=== PATIENT | male | born 1995 | race African-American/Black ===

== ENCOUNTER 2017-07-20 16:55 | Emergency (ER) | payer OTHER ==
[2017-07-20 17:16] VITALS: BP 133/77
[2017-07-20] MEDS ORDERED: IBUPROFEN 800 MG TABLET PO ONE (17:53)
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
== END 2017-07-20 18:56 | disposition home or self-care (01) ==
LOC: ER 16:55
DX: S29.019A Strain of muscle and tendon of unspecified wall of thorax, initial encounter (principal); S29.012A Strain of muscle and tendon of back wall of thorax, initial encounter; S80.02XA Contusion of left knee, initial encounter; S80.01XA Contusion of right knee, initial encounter; M25.561 Pain in right knee; M25.562 Pain in left knee; M54.5 Low back pain; M79.672 Pain in left foot; M25.572 Pain in left ankle and joints of left foot; M25.473 Effusion, unspecified ankle; V47.5XXA Car driver injured in collision with fixed or stationary object in traffic accident, initial encounter
CPT/HCPCS: 72070; 99283

== ENCOUNTER 2017-09-09 11:26 | Emergency (ER) | payer BC, OTHER ==
[2017-09-09 11:37] VITALS: BP 161/72
[2017-09-09] MEDS ORDERED: ONDANSETRON 4 MG TAB.RAPDIS PO ONE (11:47)
[2017-09-09] MEDS ORDERED: KETOROLAC TROMETHAMINE 60 MG/2 ML SDV IM ONE (11:47)
--- NOTE | 2017-09-09 11:49 | ER Document Report ---
ED Medical Screen (RME) - General Chief Complaint: Back Pain Stated Complaint: BACK PAIN Time Seen by Provider: 09/09/17 11:43 Mode of Arrival: Medic Information source: Patient Notes: Patient presents emergency department for complaints of right-sided flank pain. Patient reports approximately one hour ago when he was laying in bed he started having right-sided pain. He got up had a bowel movement and it came back and the pain continued. Patient complains of nausea and has vomited one time. Patient denies trauma. Denies history of this pain. Reports he used to drink a lot of Mountain Dew but he has quit recently. Family history of kidney stones. I have greeted and performed a rapid initial assessment of this patient. A comprehensive ED assessment and evaluation of the patient, analysis of test results and completion of the medical decision making process will be conducted by additional ED providers. TRAVEL OUTSIDE OF THE [place] IN LAST 30 DAYS: No - Related Data Allergies/Adverse Reactions: No Known Allergies Allergy (Verified 09/09/17 11:28) Past Medical History Renal/ Medical History: Denies: Hx Peritoneal Dialysis Musculoskeltal Medical History: Reports Hx Musculoskeletal Trauma - Labrum tear Past Surgical History: Reports: Hx Orthopedic Surgery - Immunizations Immunizations up to date: Yes Physical Exam - Vital signs Vitals: Temp Pulse Resp BP Pulse Ox 98.5 F 80 20 161/72 H 100 09/09/17 11:36 09/09/17 11:36 09/09/17 11:36 09/09/17 11:36 09/09/17 11:36 Course - Vital Signs Vital signs: Temp Pulse Resp BP Pulse Ox 98.5 F 80 20 161/72 H 100 09/09/17 11:36 09/09/17 11:36 09/09/17 11:36 09/09/17 11:36 09/09/17 11:36 Doctor's Discharge - Discharge Referrals: JONY FLYNN MD [Primary Care Provider] - Follow up as needed
--- NOTE | 2017-09-09 12:09 | RADIOLOGY REPORT (SQ) ---
EXAM DESCRIPTION: CT LTD RENAL STONE PROTOCOL ON COMPLETED DATE/TIME: 09/09/2017 11:57 am REASON FOR STUDY: right flank pain COMPARISON: None. TECHNIQUE: CT scan of the abdomen and pelvis performed without intravenous or oral contrast. Images reviewed with lung, soft tissue, and bone windows. Reconstructed coronal and sagittal MPR images revi ewed. All images stored on PACS. All CT scanners at this facility use dose modulation, iterative reconstruction, and/or weight based d osing when appropriate to reduce radiation dose to as low as reasonably achievable (ALARA). [facility]: Dose Right [facility]: CareDose [facility]: Dose Right [facility]: Teradose 4D [facility]: Smart Technologies RADIATION DOSE: CT Rad equipment meets quality standard of care and radiation dose reduction techniq ues were employed. CTDIvol: 9.1 mGy. DLP: 513 mGy-cm.mGy. LIMITATIONS: None. FINDINGS: LOWER CHEST: No significant findings. No nodules or infiltrates. NON-CONTRASTED LIVER, SPLEEN, ADRENALS: Evaluation limited by lack of IV contrast. No identified sign ificant masses. PANCREAS: No masses. No peripancreatic inflammatory changes. GALLBLADDER: No identified stones by CT criteria. No inflammatory changes to suggest cholecystitis. RIGHT KIDNEY AND URETER: No suspicious masses. Assessment limited by lack of IV contrast. There is a 2 mm calcification at the right UVJ. Mild hydronephrosis/ hydroureter. LEFT KIDNEY AND URETER: No suspicious masses. Assessment limited by lack of IV contrast. No signifi cant calcifications. No hydronephrosis or hydroureter. AORTA AND RETROPERITONEUM: No aneurysm. No retroperitoneal masses or adenopathy. BOWEL AND PERITONEAL CAVITY: No obvious masses or inflammatory changes. No free fluid. APPENDIX: Normal. PELVIS, BLADDER, AND ABDOMINAL WALL:No abnormal masses. No free fluid. Bladder normal. BONES: No significant findings. OTHER: No other significant finding. IMPRESSION: Mild right hydronephrosis secondary to the presence of a 2 mm calculus at the right UVJ. COMMENT: Quality ID # [id number]: Final reports with documentation of one or more dose reduction techniques (e.g., Automated exposure control, adjustment of the mA and/or kV according to patient size, use of iterative reconstruction technique) TECHNICAL DOCUMENTATION: JOB ID: [id number] [employer]- All Rights Reserved Reading location - IP/workstation name: [email or web address]
[2017-09-09] MEDS ORDERED: TAMSULOSIN HCL 0.4 MG CAP.SR.24H PO ONE (12:30)
[2017-09-09] MEDS ORDERED: ONDANSETRON ODT 4 MG TAB (6 TAB/ER DISP) PO PRN (12:30)
== END 2017-09-09 12:43 | disposition home or self-care (01) ==
LOC: ER 11:26
DX: N20.0 Calculus of kidney (principal); R10.9 Unspecified abdominal pain; R11.10 Vomiting, unspecified
CPT/HCPCS: 99284; 96372; 76380; J1885; S0119

== ENCOUNTER 2018-09-04 19:55 | Emergency (ER) | payer BC, OTHER ==
[2018-09-04 20:04] VITALS: BP 144/84
[2018-09-04] MEDS ORDERED: DEXAMETHASONE SOD PHOS INJ 10 MG/1 ML VIAL IM ONE (20:42)
[2018-09-04] MEDS ORDERED: KETOROLAC TROMETHAMINE 60 MG/2 ML SDV IM ONE (20:42)
--- NOTE | 2018-09-04 20:49 | ER Document Report ---
ED Neck/Back Problem - General Chief Complaint: Back Pain Stated Complaint: BACK PAIN Primary Care Provider: JONY FLYNN MD [Primary Care Provider] - Follow up as needed Mode of Arrival: Ambulatory Information source: Patient Notes: 23-year-old male presented to ED for complaint of bilateral lower back pain. He states that he drove to [place] and back between Tuesday and now. He states that he thought at first that he was having a kidney stone but that sharp pain in the flank disappeared and now he just has muscle pain bilaterally. He states it hurts to bend and turn in certain directions but he can walk around with no difficulty. He states he has had no loss control of bowel bladder, no saddle anesthesia, no loss of control or sensation to the lower extremities. He is a ble to walk with a even steady gait. He states most the time he can walk fine. TRAVEL OUTSIDE OF THE [place] IN LAST 30 DAYS: No - HPI Patient complains to provider of: Pain, Lower back Onset: Other - Tuesday Onset: Gradual Timing: Still present - Intermittent Severity: Severe Pain Level: 5 Context: Bending, Lifting, Turning Associated symptoms: Like prior neck/back pain, Lower back pain. denies: Radiation to arm, Radiation to chest, Radiation to leg, Sensory loss, Sweaty Exacerbated by: Movement of trunk, Sitting position Relieved by: Nothing Similar symptoms previously: Yes Recently seen / treated by doctor: No - Related Data Allergies/Adverse Reactions: No Known Allergies Allergy (Verified 09/09/17 11:28) Past Medical History - General Information source: Patient - Social History Smoking Status: Never Smoker Frequency of alcohol use: None Drug Abuse: None Lives with: Family Family History: Reviewed & Not Pertinent - Past Medical History Cardiac Medical History: Reports: None Pulmonary Medical History: Reports: None EENT Medical History: Reports: None Neurological Medical History: Reports: None Endocrine Medical History: Reports: None Renal/ Medical History: Reports: Hx Kidney Stones Malignancy Medical History: Reports None GI Medical History: Reports: None Musculoskeletal Medical History: Reports Hx Musculoskeletal Trauma - Labrum tear Skin Medical History: Reports None Psychiatric Medical History: Reports: None Traumatic Medical History: Reports: None Infectious Medical History: Reports: None Past Surgical History: Reports: Hx Orthopedic Surgery - Immunizations Immunizations up to date: Yes Review of Systems - Review of Systems Constitutional: No symptoms reported EENT: No symptoms reported Cardiovascular: No symptoms reported Respiratory: No symptoms reported Gastrointestinal: No symptoms reported Genitourinary: No symptoms reported Male Genitourinary: No symptoms reported Musculoskeletal: Back pain, Muscle pain, Muscle stiffness Skin: No symptoms reported Hematologic/Lymphatic: No symptoms reported Neurological/Psychological: No symptoms reported -: Yes All other systems reviewed and negative Physical Exam - Vital signs Vitals: Temp Pulse Resp BP Pulse Ox 98.3 F 81 14 144/84 H 97 09/04/18 20:03 09/04/18 20:03 09/04/18 20:03 09/04/18 20:03 09/04/18 20:03 Interpretation: Normal - General General appearance: Appears well, Alert - HEENT Head: Normocephalic, Atraumatic Eyes: Normal Pupils: PERRL - Respiratory Respiratory status: No respiratory distress Chest status: Nontender Breath sounds: Normal Chest palpation: Normal - Cardiovascular Rhythm: Regular Heart sounds: Normal auscultation Murmur: No - Abdominal Inspection: Normal Distension: No distension Bowel sounds: Normal Tenderness: Nontender Organomegaly: No organomegaly - Back Back: Normal, Tender. No: Deformity/step-off, CVA tenderness, Vertebra tenderness, Scars, Scoliosis, Wounds Notes: Patient denies any signs or symptoms of cauda equina, no loss control of bowel bladder, no saddle anesthesia, no loss of control or sensation to the lower extremities. After performing a Medical Screening Examination, I estimate there is LOW risk for EXPANDING OR RUPTURED ABDOMINAL AORTIC ANEURYSM, CAUDA EQUINA SYNDROME, EPIDURAL MASS LESION, or HERNIATED DISK CAUSING SEVERE SPINAL STENOSIS, thus I consider the discharge disposition reasonable. I have reevaluated this patient multiple times and no significant life threatening changes are noted. The patient and I have discussed the diagnosis and risks, and we agree with discharging home and close follow-up. We also discussed returning to the Emergency Department immediately if new or worsening symptoms occur with the understanding that symptoms and presentations can change. We have discussed the symptoms which are most concerning (e.g., saddle anesthesia, urinary or bowel incontinence or retention, changing or worsening pain) that necessitate immediate return. - Extremities General upper extremity: Normal inspection, Nontender, Normal color, Normal ROM, Normal temperature General lower extremity: Normal inspection, Nontender, Normal color, Normal ROM, Normal temperature, Normal weight bearing. No: Basim's sign - Neurological Neuro grossly intact: Yes Cognition: Normal Orientation: AAOx4 [place] Coma Scale Eye Opening: Spontaneous Maged Coma Scale Verbal: Oriented Maged Coma Scale Motor: Obeys Commands [place] Coma Scale Total: 15 Speech: Normal Motor strength normal: LUE, RUE, LLE, RLE Sensory: Normal - Psychological Associated symptoms: Normal affect, Normal mood - Skin Skin Temperature: Warm Skin Moisture: Dry Skin Color: Normal Course - Vital Signs Vital signs: Temp Pulse Resp BP Pulse Ox 98.3 F 81 14 144/84 H 97 09/04/18 20:03 09/04/18 20:03 09/04/18 20:03 09/04/18 20:03 09/04/18 20:03 Discharge - Discharge Clinical Impression: Low back pain Qualifiers: Chronicity: acute Back pain laterality: bilateral Sciatica presence: without sciatica Qualified Code(s): M54.5 - Low back pain Condition: Stable Disposition: HOME, SELF-CARE Additional Instructions: LOW BACK PAIN: Three out of every four people will have an episode of disabling back pain during their lifetime. Most commonly the pain is due to straining of the muscles and ligaments in the low back. Usual treatment includes: (1) Rest on a firm surface. Avoid lying on your stomach. (2) Ice pack the painful area. After a few days, gentle heat may be used intermittently to relax the area, or ice packs can be continued. (3) Medication may be needed -- muscle relaxers and antiinflammatory medicines are commonly used. (4) As the back improves, exercises are prescribed to strengthen the back and abdominal muscles. Your doctor will advise you on the proper care for your back at each stage in your recovery. You may be better in a few days -- or healing may take several weeks. If new symptoms of a "herniated disc" (radiation of pain, numbness, or tingling down the back of the leg or weakness in the leg) occur, you should be re-examined. Further testing may be necessary. Toradol Injection You have been given an injection of ketorolac tromethamine (Toradol). This is an excellent, safe drug for pain control. It also has potent antiinflammatory action. You should have significant pain relief within about one hour. Toradol is not addicting and is non-sedating. It does not interfere with driving or work. Call or return if you develop itching, hives, shortness of breath, or rash. STEROID MEDICATION: You have been given an injection of medicine of the cortisone/steroid class. This medication is used to control inflammation or allergy. It is often continued as a pill for a short period of time, until the acute process subsides. There are usually no side effects from short-term use of cortisone-like medications. Some persons feel an increased sense of well-being and are not sleepy at bedtime. Long-term use of cortisone medications is best avoided, un less required for a severe condition. If your condition does not remit, or relapses after the course of corticosteroid medication, you should consult your physician. Stretching Exercises for the Back The physician has recommended that you begin stretching exercises for your back. These are often used even while the back is painful. However, you should notify the physician if the activities seem to increase your pain. PELVIC TILT: Lie flat on your back with knees bent. Tighten your stomach and buttock muscles so it flattens your lower back against the floor. Hold 10 seconds. Repeat 10 times, twice daily. KNEE RAISE: Lying on the back with knees bent, raise one knee to your chest, then the other. Hold both knees against the chest 10 seconds, then lower one knee at a time. Repeat 10 times, twice daily. PARTIAL TRUNK RAISE: Lie face down, arms at your sides. Keeping your waist on the floor, use your arms raise your chest up. Support yourself on your elbows for 30 seconds. Repeat twice daily, increasing the time to two minutes as you recover. MUSCLE RELAXERS: Muscle relaxing medications are usually prescribed for acute muscle spasm or injury to the neck and back. They are often combined with antiinflammatory pain medication for increased relief. You may stop the muscle relaxer when the pain and stiffness have improved. Start the medication again if spasms recur. Muscle relaxers may cause drowsiness, especially with the first dose. Do not operate machinery or drive while under the effects of the medication. Most muscle relaxers last up to 24 hours. Do not combine the medication with alcohol. ICE PACKS: Apply ice packs frequently against the painful area. Many different schedules are recommended, such as "20 minutes on, 20 minutes off" or "one hour ice, two hours rest." If you need to work, you may need to go longer between ice treatments. You should plan to have the area ice packed AT LEAST one fourth of the time. The ice should be applied over the wrap, tape, or splint, or over a layer of cloth -- not directly against the skin. Some ice bags have a built-in cloth and can be put directly on the skin. WARM PACKS: After approximately two days, apply gentle heat (such as a heating pad or hot water bottle) for about 20 to 30 minutes about every two hours -- at least four times daily. Warmth and elevation will help you make a more rapid recovery, and will ease the pain considerably. Do not use HOT heat, and never apply heat for longer than 30 minutes. The continuous heat can invisibly damage skin and muscles -- even when no burn is seen on the surface. Damaged muscles can make you MORE sore. FOLLOW-UP CARE: If you have been referred to a physician for follow-up care, call the physicians office for an appointment as you were instructed or within the next two days. If you experience worsening or a significant change in your symptoms, notify the physician immediately or return to the Emergency Department at any time for re-evaluation. Prescriptions: Methocarbamol [Robaxin 500 mg Tablet] 500 mg PO BIDP PRN #14 tablet PRN Reason: Forms: Elevated Blood Pressure, Return to Work Referrals: RAFAELA ROBBINS DO [NO LOCAL MD] - Follow up as needed
== END 2018-09-04 21:15 | disposition home or self-care (01) ==
LOC: ER 19:55
DX: M54.5 Low back pain (principal); M54.9 Dorsalgia, unspecified
CPT/HCPCS: 99283; 96374; 96375; J1885; J1100

== ENCOUNTER 2018-09-06 09:31 | Emergency (ER) | payer OTHER ==
[2018-09-06] MEDS ORDERED: LIDOCAINE 2% VISCOUS SOLN 20 ML UDCUP PO ONE (09:55)
[2018-09-06] MEDS ORDERED: MAG HYDROX/AL HYDROX/SIMETH SUSP 30 ML UDCUP PO ONE (09:55)
[2018-09-06] MEDS ORDERED: METOCLOPRAMIDE HCL ORAL SOLN 10 MG/10 ML UDCUP PO ONE (09:55)
[2018-09-06] MEDS ORDERED: ACETAMINOPHEN 325 MG TABLET PO ONE (09:57)
--- NOTE | 2018-09-06 10:08 | ER Document Report ---
HPI - HPI Patient complains to provider of: hiccups and headache Time Seen by Provider: 09/06/18 09:44 Pain Level: 2 Context: 23-year-old healthy male presents the emergency department with persistent hiccups x48 hours. He states they started about 4 hours after his ER visit for back pain on 09/04 after rapidly drinking a soda followed by water. Of note, patient did receive a shot of dexamethasone while here in the ER. Patient states that symptoms have been persistent and he has associated acid reflux that was a burning in his upper esophageal area now followed by a gassy-like pressure just below his sternum in the epigastric area. Patient says that he has been "spitting up" acid from the hiccups and did vomit once yesterday that was brown in nature with no blood. Patient denies any significant chest pain with radiation, diaphoresis, dizziness or lightheadedness, dyspnea, or any other concerning symptoms. - CONSTITUTIONAL Constitutional: DENIES: Fever, Chills - EENT EENT: DENIES: Sore Throat, Ear Pain, Eye problems - NEURO Neurology: REPORTS: Headache. DENIES: Weakness, Vision blurred, Dizzinesss / Vertigo - CARDIOVASCULAR Cardiovascular: REPORTS: Chest pain - burning from hiccups - RESPIRATORY Respiratory: DENIES: Trouble Breathing, Coughing - GASTROINTESTINAL Gastrointestinal: DENIES: Abdominal Pain, Black / Bloody Stools - URINARY Urinary: DENIES: Dysuria, Urgency, Frequency - MUSCULOSKELETAL Musculoskeletal: DENIES: Extremity pain Past Medical History - Social History Smoking Status: Unknown if Ever Smoked Chew tobacco use (# tins/day): No Frequency of alcohol use: None Drug Abuse: None Family History: Reviewed & Not Pertinent Patient has suicidal ideation: No Patient has homicidal ideation: No Renal/ Medical History: Reports: Hx Kidney Stones. Denies: Hx Peritoneal Dialysis Musculoskeletal Medical History: Reports Hx Musculoskeletal Trauma - Labrum tear Past Surgical History: Reports: Hx Orthopedic Surgery - Immunizations Immunizations up to date: Yes Vertical Provider Document - CONSTITUTIONAL Notes: PHYSICAL EXAMINATION: Reviewed vital signs and charting by RN GENERAL: Alert, interacts well. No acute distress. HEAD: Normocephalic, atraumatic. EYES: Pupils equal and round. Extraocular movements intact. ENT: Oral mucosa moist, tongue midline. NECK: Full range of motion. Trachea midline. LUNGS: Clear to auscultation bilaterally, no wheezes, rales, or rhonchi. No respiratory distress. HEART: Regular rate and rhythm. No murmur ABDOMEN: soft, non-tender. No distention. Bowel sounds present EXTREMITIES: Moves all 4 extremities spontaneously. No edema, No cyanosis. PSYCH: Normal affect, normal mood. SKIN: Warm, dry, normal turgor. No rashes or lesions noted. - INFECTION CONTROL TRAVEL OUTSIDE OF THE [place] IN LAST 30 DAYS: No Course - Re-evaluation Re-evalutation: 09/06/18 10:12 I strongly suspect his hiccups are a side effect from receiving dexamethasone 10 mg IM on 09/04 here in the emergency department coupled with rapidly drinking a soda 4 to 5 hours after that. Patient received a GI cocktail here in the emergency department and I have given him a prescription for a very short course of metoclopramide. Patient is very healthy and has no strong family cardiac history so I have very low concern for ACS, aortic dissection, concern for coagulopathies like a PE. Patient has been given strict return precautions and what to look out for for any concerning etiologies. He agrees to the plan and is stable for discharge. 09/06/18 10:20 Patient states that he has not had anything to eat or drink this morning so I gave him a single dose of pantoprazole 40 mg p.o. once. Patient's initial blood pressure was 135/118 and repeat blood pressure was 145/97. - Vital Signs Vital signs: Temp Pulse Resp BP Pulse Ox 98.2 F 68 20 135/118 H 99 09/06/18 09:35 09/06/18 09:35 09/06/18 09:35 09/06/18 09:35 09/06/18 09:35 Discharge - Discharge Clinical Impression: Hiccups Headache Qualifiers: Headache type: unspecified Headache chronicity pattern: acute headache Intractability: not intractable Qualified Code(s): R51 - Headache Condition: Good Disposition: HOME, SELF-CARE Additional Instructions: You were seen in the emergency department this morning for hiccups and for a headache. The most probable cause for your hiccups are a combination of receiving the steroid shot 2 days ago rapidly drinking a soda causing irritation of your phrenic nerve. You have received a "GI cocktail" which has Maalox, viscous lidocaine, and a medication called Reglan which should help soothe your symptoms. Also, given a short prescription for a medication called Reglan that you can take for the next 2 to 3 days. Take 10 mg 3 times per day for the next 3 days or until your symptoms resolve. You should also take a proton pump inhibitor like Prevacid that you can buy [id number] for the next 14 days if you are having symptoms of acid reflux. Take it first thing in the morning 30 to 60 minutes before eating or drinking anything at all. You can take it with a little bit of water. If you have persistent hiccups causing significant distress, you have worsening or significant chest pain, you have nausea/lightheadedness/dizziness/profuse sweating associated with the chest pain, you have acute shortness of breath, please immediately return to the emergency department as these are signs of more serious illness. Forms: Return to Work Referrals: RAFAELA ROBBINS, [Primary Care Provider] - Follow up as needed
[2018-09-06] MEDS ORDERED: PANTOPRAZOLE SODIUM 40 MG TABLET.DR PO ONE (10:18)
[2018-09-06 10:19] VITALS: BP 149/97
== END 2018-09-06 10:21 | disposition home or self-care (01) ==
LOC: ER 09:31
DX: R06.6 Hiccough (principal); K21.9 Gastro-esophageal reflux disease without esophagitis; R51 Headache
CPT/HCPCS: 99283; J3490 ×2